=== PATIENT | male | born 1970 | race Caucasian/White ===

== ENCOUNTER 2019-07-26 18:43 | Emergency (ER) | payer BC ==
[2019-07-26] MEDS ORDERED: Sodium Chloride 0.9% 1000 ML 1,000 ML IV STA ×2 (19:15→19:48)
[2019-07-26] MEDS ORDERED: Sodium Chloride 0.9% 1000 ML 0 ML ONE (19:21)
--- NOTE | 2019-07-26 19:22 | ERPHSYRPT ---
- History of Present Illness Historian: patient, family Exam Limitations: no limitations Patient Subjective Stated Complaint: pt reports approx 15 mins [employer] he had stopped at a yard sale with his daughter, reports he had a sudden onset of sharp mid upper abdominal pain, states he also felt lightheaded. reports that he got into the car with his daughter and began to drive, states he had a bried loss of consciousness because he became aware of cars around him and blurry vision as well as his daughter screaming for him to [employer]. pt reports daughter drove him here and states he did vomit once in the parking lot. pt states he feels a lot better. pt also reports that he has not been drinking much water today and has done a lot of walking. Triage Nursing Assessment: pt is aox3, speech is clear and appropriate, pupils perrl, afebrile, resps easy and non labored, radial pulses strong and equal, cap refill < 3 seconds, abd soft non tender bowel sounds present normoactive x 4 , pt skin pink warm dry. Timing/Duration: today Activities at Onset: none Quality: cramping, stabbing Abdominal Pain Onset Location: epigastric Pain Radiation: back Severity of Pain-Max: severe Severity of Pain-Current: moderate Modifying Factors: Improves With: vomiting Associated Symptoms: vomiting Previous symptoms: no prior history Hx Tetanus, Diphtheria Vaccination/Date Given: Yes Hx Influenza Vaccination/Date Given: No Hx Pneumococcal Vaccination/Date Given: No Immunizations Up to Date: Yes - History of Present Illness Time Seen by Provider: 07/26/19 19:20 Physician History: Mr Beasley is a 48 years old male came to ER reports approximately 15 mins [employer] he had stopped at a yard sale with his daughter, reports he had a sudden onset of sharp mid upper abdominal pain, states he also felt lightheaded. reports that he got into the car with his daughter and began to drive, states he had a bried loss of consciousness because he became aware of cars around him and blurry vision as well as his daughter screaming for him to [employer]. pt reports daughter drove him here and states he did vomit once in the parking lot. pt states he feels a lot better. he also reports that he has not been drinking much water today and has done a lot of walking. (NUVIA,JOSE) Allergies/Adverse Reactions: No Known Drug Allergies Allergy (Unverified 07/26/19 18:57) - Review of Systems Constitutional: No Fever, No Chills Eyes: No Symptoms Ears, Nose, & Throat: No Symptoms Respiratory: No Cough, No Dyspnea Cardiac: Syncope, No Chest Pain, No Edema Abdominal/Gastrointestinal: Abdominal Pain, Nausea, Vomiting, No Diarrhea Genitourinary Symptoms: No Dysuria Musculoskeletal: No Back Pain, No Neck Pain Skin: No Rash Neurological: No Dizziness, No Focal Weakness, No Sensory Changes Psychological: No Symptoms Endocrine: No Symptoms All Other Systems: Reviewed and Negative - Past Medical History Pertinent Past Medical History: Yes Endocrine Medical History: Hypothyroidism - Past Surgical History Past Surgical History: Yes Gastrointestinal: Appendectomy, Cholecystectomy - Social History Smoking Status: Never smoker Drug Use: none Patient Lives Alone: No - Physical Exam General Appearance: no apparent distress, alert Eye Exam: PERRL/EOMI, eyes nml inspection Ears, Nose, Throat Exam: normal ENT inspection, pharynx normal, moist mucous membranes Neck Exam: normal inspection, non-tender, supple, full range of motion Respiratory Exam: normal breath sounds, lungs clear, No respiratory distress Cardiovascular Exam: regular rate/rhythm, normal heart sounds Gastrointestinal/Abdomen Exam: soft, No tenderness, No mass Back Exam: normal inspection, normal range of motion, No CVA tenderness, No vertebral tenderness Extremity Exam: normal inspection, normal range of motion, pelvis stable Neurologic Exam: alert, oriented x 3, cooperative, normal mood/affect, nml cerebellar function, sensation nml, No motor deficits Skin Exam: normal color, warm, dry - Nursing Vital Signs Nursing Vital Signs: Initial Vital Signs Temperature 97.7 F 07/26/19 18:45 Pulse Rate 72 07/26/19 18:45 Respiratory Rate 20 07/26/19 18:45 Blood Pressure 149/90 07/26/19 18:45 Pain Scale Pain Intensity 2 - Course Nursing assessment & vital signs reviewed: Yes EKG Interpreted by Me: Sinus Rhythm - Radiology Exams Chest X-ray Interpretation: Reviewed by me - CT Exams Abdomen/Pelvis CT Interpretation: Tele-radiologist Report Ordered Tests: Active Orders 24 hr Category Date Time Status EKG-ER Only STAT Care 07/26/19 19:15 Active IV Insertion STAT Care 07/26/19 19:15 Active NPO (ED) STAT Care 07/26/19 19:15 Active ABDOMEN AND PELVIS W/0 CONTRAS [CT] Stat Exams 07/26/19 19:08 Completed CHEST 1 VIEW (PORTABLE) Stat Exams 07/26/19 19:02 Completed AMYLASE Stat Lab 07/26/19 19:23 Completed CBC W DIFF Stat Lab 07/26/19 19:23 Completed CK-Creatinine Phosphokinase Stat Lab 07/26/19 19:23 Completed CMP Stat Lab 07/26/19 19:23 Completed D-DIMER QUANTITATION Stat Lab 07/26/19 19:23 Completed LIPASE Stat Lab 07/26/19 19:23 Completed Lactic Acid Stat Lab 07/26/19 19:15 Completed MAGNESIUM Stat Lab 07/26/19 19:23 Completed TROPONIN Q3H Lab 07/26/19 19:23 Completed Medication Summary Discontinued Medications Generic Name Dose Route Start Last Admin Trade Name Freq PRN Reason Stop Dose Admin Sodium Chloride 1,000 mls @ 999 mls/hr 07/26/19 19:15 07/26/19 21:49 Sodium Chloride 0.9% 1000 Ml IV 07/26/19 20:15 Infused .Q1H1M STA Infusion Sodium Chloride Confirm 07/26/19 19:21 Sodium Chloride 0.9% 1000 Ml Administered 07/26/19 19:22 Dose 1,000 mls @ ud .ROUTE .STK-MED ONE Sodium Chloride Confirm 07/26/19 19:24 Sodium Chloride 0.9% 1000 Ml Administered 07/26/19 19:25 Dose 1,000 mls @ ud .ROUTE .STK-MED ONE Sodium Chloride 1,000 mls @ 999 mls/hr 07/26/19 19:48 07/26/19 21:49 Sodium Chloride 0.9% 1000 Ml IV 07/26/19 20:48 Infused .Q1H1M STA Infusion Sodium Chloride Confirm 07/26/19 20:22 Sodium Chloride 0.9% 1000 Ml Administered 07/26/19 20:23 Dose 1,000 mls @ ud .ROUTE .STK-MED ONE Potassium Bicarbonate 25 meq 07/26/19 19:51 07/26/19 20:26 K-Lyte 25 Meq PO 07/26/19 19:52 25 meq STAT ONE Administration Potassium Bicarbonate Confirm 07/26/19 20:22 K-Lyte 25 Meq Administered 07/26/19 20:23 Dose 25 meq .ROUTE .STK-MED ONE Lab/Rad Data: Laboratory Result Diagrams 07/26/19 19:23 07/26/19 19:23 Laboratory Results 07/26/19 07/26/19 07/26/19 Range/Units 20:47 19:23 19:23 WBC (4.0-10.5) K/mm3 RBC (4.1-5.6) M/mm3 Hgb (12.5-18.0) gm/dl Hct (42-50) % MCV (78-100) fl MCH (26-32) pg MCHC (32-36) g/dl RDW (11.5-14.0) % Plt Count (150-450) K/mm3 MPV (6-9.5) fl Gran % (36.0-66.0) % Eos # (Auto) (0-0.5) Absolute Lymphs (auto) (1.0-4.6) Absolute Monos (auto) (0.0-1.3) Lymphocytes % (24.0-44.0) % Monocytes % (0.0-12.0) % Eosinophils % (0.00-5.0) % Basophils % (0.0-0.4) % Absolute Granulocytes (1.4-6.9) Basophils # (0-0.4) D-Dimer < 215 L (215-500) ng/mL Sodium (137-145) mmol/L Potassium (3.5-5.1) mmol/L Chloride (98-107) mmol/L Carbon Dioxide (22-30) mmol/L Anion Gap (5-15) MEQ/L BUN (9-20) mg/dL Creatinine (0.66-1.25) mg/dL Estimated GFR ML/MIN Glucose (74-106) mg/dL Hemoglobin A1c 4.92 (4.5-6.0) % Lactic Acid (0.4-2.0) Calcium (8.4-10.2) mg/dL Magnesium (1.6-2.3) mg/dL Total Bilirubin (0.2-1.3) mg/dL AST (17-59) U/L ALT (0-50) U/L Alkaline Phosphatase (38-126) U/L Creatine Kinase (55-170) U/L Troponin I < 0.012 (0.000-0.034) ng/mL Serum Total Protein (6.3-8.2) g/dL Albumin (3.5-5.0) g/dL Amylase (30-110) U/L Lipase (23-300) U/L 07/26/19 07/26/19 07/26/19 Range/Units 19:23 19:23 19:15 WBC 7.9 (4.0-10.5) K/mm3 RBC 4.53 (4.1-5.6) M/mm3 Hgb 13.9 (12.5-18.0) gm/dl Hct 40.4 L (42-50) % MCV 89.2 (78-100) fl MCH 30.7 (26-32) pg MCHC 34.4 (32-36) g/dl RDW 12.8 (11.5-14.0) % Plt Count 314 (150-450) K/mm3 MPV 9.3 (6-9.5) fl Gran % 44.4 (36.0-66.0) % Eos # (Auto) 0.34 (0-0.5) Absolute Lymphs (auto) 3.35 (1.0-4.6) Absolute Monos (auto) 0.64 (0.0-1.3) Lymphocytes % 42.7 (24.0-44.0) % Monocytes % 8.2 (0.0-12.0) % Eosinophils % 4.3 (0.00-5.0) % Basophils % 0.4 (0.0-0.4) % Absolute Granulocytes 3.49 (1.4-6.9) Basophils # 0.03 (0-0.4) D-Dimer (215-500) ng/mL Sodium 141 (137-145) mmol/L Potassium 3.4 L (3.5-5.1) mmol/L Chloride 103 (98-107) mmol/L Carbon Dioxide 26 (22-30) mmol/L Anion Gap 15.4 H (5-15) MEQ/L BUN 19 (9-20) mg/dL Creatinine 1.56 H (0.66-1.25) mg/dL Estimated GFR 50.5 ML/MIN Glucose 153 H (74-106) mg/dL Hemoglobin A1c (4.5-6.0) % Lactic Acid 2.9 H (0.4-2.0) Calcium 9.6 (8.4-10.2) mg/dL Magnesium 2.1 (1.6-2.3) mg/dL Total Bilirubin 0.90 (0.2-1.3) mg/dL AST 27 (17-59) U/L ALT 24 (0-50) U/L Alkaline Phosphatase 39 (38-126) U/L Creatine Kinase 124 (55-170) U/L Troponin I (0.000-0.034) ng/mL Serum Total Protein 7.4 (6.3-8.2) g/dL Albumin 4.6 (3.5-5.0) g/dL Amylase 106 (30-110) U/L Lipase 96 (23-300) U/L - Progress Progress: improved Counseled pt/family regarding: lab results, diagnosis, need for follow-up, rad results - Departure Departure Disposition: Home Critical Care Time: No - Departure Clinical Impression: Epigastric abdominal pain, Syncope, vasovagal Condition: Stable Referrals: DAMIEN PIMENTEL MD [Primary Care Provider] - Instructions: Acute Abdomen (Belly Pain), Adult (DC), Syncope (Fainting) (DC), Vasovagal Response (DC) Additional Instructions: ABDOMINAL PAIN 1. There are several different causes for abdominal pain, some of which may not be able to be identified on initial examination. 2. The important thing to remember is that bodily functions can change in a short period of time. If you notice any of the following symptoms, return to the emergency department or consult your doctor immediately: A. Worsening pain or no improvement in the next 12 hours. B. Increasing, severe abdominal pain C. Blood in stool D. Black stools E. Persistent vomiting F. Fever or chills or other symptoms Discharge/Care Plan RAMOSMIKE MARAVILLA was seen on 07/26/19 in the Emergency Room. The patient was counseled regarding Diagnosis,Lab results, Imaging studies, need for follow up and when to return to the Emergency Room. Prescriptions given: Discharge Note I have spoken with the patient and/or caregivers. I have explained the patient' s condition, diagnosis and treatment plan based on the information available to me at this time. I have answered the patient's and/or caregiver's questions and addressed any concerns. The patient and/or caregivers have as good understanding of the patient's diagnosis, condition and treatment plan as can be expected at this point. The vital signs have been stable. The patient's condition is stable and appropriate for discharge from the emergency department. The patient will pursue further outpatient evaluation with the primary care physician or other designated or consulting physician as outlined in the discharge instructions. The patient and/or caregivers are agreeable to this plan of care and follow-up instructions have been explained in detail. The patient and/or caregivers have received these instruction. The patient/and or caregivers are aware that any significant change in condition or worsening of symptoms should prompt an immediate return to this or the closest emergency department or call 911. MIKE BEASLEY was seen on 07/26/19 n the Emergency Room. At that time you were treated for an emergent condition, during your visit Laboratory, Radiology and/or other procedures may have been ordered. It is very important that you follow-up with your Primary Care Physician DAMIEN PIMENTEL within the next 24-48 hours to review your Emergency Room visit and the final results of testing that was ordered. Some test results such as Urine Cultures, Blood Cultures, and other cultures if ordered will not be finalized for 24-48 hours. If you do not have a Primary Care Provider please call the medical records department at [phone] ext [phone] to obtain a copy of your results or you may sign into our patient portal to obtain these results by visiting us @ [email or web address] and completing the following steps: 1. Click on the Patient Portal link 2. Click the Patient Self Enrollment Link to complete the enrollment form and entering your 3. Once the enrollment form is completed you will receive an email with a temporary ID and password at the email address you provided. 4. Next choose a user name and password. Your user name must be at least 4 characters long and your password must be at least 4 characters long. 5. Choose a security question from the list and provide your answer to the question. If you already have signed into the Health Portal you may access your Health Care Information 15/05 by the following steps: 1. Login to our website @ [email or web address] 2. Enter your original user name and password. FAQS The [facility] Health Portal is an online tool that contains your Lab Results, Radiology Reports, Visit History, Discharge Instructions and Health Summary Lab and Radiology Results will not be available for 72 hours on the portal. The Portal is a secure site, passwords are encryted and URLs are re-written so they cannot be copied and pasted. You and authorized family members are the only ones who can access your Portal. Also there is a timeout feature that protects your information if you leave the Portal page open. If you have technical difficulty please use the Contact Us link on the page this will allow you to submit any questions you have regarding the Portal or you may contact the Medical Record Department at [phone] ext [phone].
[2019-07-26] MEDS ORDERED: Sodium Chloride 0.9% 1000 ML 1,000 ML ONE ×2 (19:24→20:22)
[2019-07-26 19:29] LABS: Absolute Neutrophil Ct (ANC) 3.49 (1.4-6.9); BASOPHIL % 0.4 % (0.0-0.4); Basophil (Absolute #) 0.03 (0-0.4); Eosinophil % 4.3 % (0.00-5.0); Eosinophil (Absolute #) 0.34 (0-0.5); Hematocrit 40.4 % (42-50); Hemoglobin 13.9 gm/dl (12.5-18.0); Lymphocyte (Absolute #) 3.35 (1.0-4.6); Lymphocytes % 42.7 % (24.0-44.0); Mean Cell Volume 89.2 fl (78-100); Mean Corpuscular Hemoglobin 30.7 pg (26-32); Mean Corpuscular Hgb Concent. 34.4 g/dl (32-36); Mean Platelet Volume 9.3 fl (6-9.5); Monocyte (Absolute #) 0.64 (0.0-1.3); Monocytes % 8.2 % (0.0-12.0); Neutrophil % 44.4 % (36.0-66.0); Platelet Count 314 K/mm3 (150-450); Red Blood Count 4.53 M/mm3 (4.1-5.6); Red Cell Distribution Width 12.8 % (11.5-14.0); White Blood Count 7.9 K/mm3 (4.0-10.5)
[2019-07-26 19:36] LABS: Lactic Acid 2.9 (0.4-2.0)
[2019-07-26 19:43] LABS: ALBUMIN 4.6 g/dL (3.5-5.0); ANION GAP 15.4 MEQ/L (5-15); BILIRUBIN,TOTAL 0.9 mg/dL (0.2-1.3); Calcium 9.6 mg/dL (8.4-10.2); Creatinine 1 1.56 mg/dL (0.66-1.25); MAGNESIUM 2.1 mg/dL (1.6-2.3); Potassium 3.4 mmol/L (3.5-5.1); Total Protein 7.4 g/dL (6.3-8.2)
[2019-07-26] MEDS ORDERED: K-LYTE 25 MEQ PO ONE (19:51)
[2019-07-26] MEDS ORDERED: K-LYTE 25 MEQ ONE (20:22)
[2019-07-26 21:49] VITALS: BP 125/76; PULSE 61; O2SAT 100
--- NOTE | 2019-07-27 07:38 | XRAY ---
Indication: Chest/upper abdomen pain. Comparison: None Portable chest demonstrates normal heart, lungs, and bony thorax with a few incidental calcified granulomas.
--- NOTE | 2019-07-27 07:41 | XRAY ---
Indication: Upper abdomen/chest pain. Nausea and vomiting. Multiple contiguous axial images obtained through the abdomen and pelvis without contrast as ordered. Comparison: None Lung bases demonstrates right posterior gutter calcified granuloma. No infiltrate or effusion. Heart is not enlarged. Noncontrasted stomach and bowel loops appear nonobstructed. Patient reports previous appendectomy and cholecystectomy. Mild scattered fecal debris predominantly in the ascending and transverse colon. No free fluid/air. Remaining liver, pancreas, spleen, adrenal glands, kidneys, ureters, bladder, and aorta appear unremarkable for noncontrast exam. Osseous structures intact with mild lumbosacral junction degenerative disc disease and small L5 bone cyst. No ventral or inguinal hernias. Impression: 1. Mild fecal stasis without obstruction, right lung base calcified granuloma, and chronic bony findings. 2. Remaining CT abdomen/pelvis without contrast exam is negative. Comment: Preliminary interpretation was made by [facility]. No critical discrepancy. CTDI 18.57
== END 2019-07-26 21:50 | disposition home or self-care (01) ==
LOC: ED 18:43
DX: R10.13 Epigastric pain (principal); R55 Syncope and collapse; R11.10 Vomiting, unspecified
CPT/HCPCS: 36000; 36415; 71045; 74176; 80053; 82150; 82550; 83036; 83605; 83690; 83735; 84484; 85025; 85379; 93005; 96360; 96361; 99284; A9270-GY

== ENCOUNTER 2021-10-04 09:49 | Day surgery (SDC) | payer BC ==
[2021-10-04] MEDS ORDERED: Lactated Ringers 1,000 ML IV SCH (10:00)
[2021-10-04] MEDS ORDERED: Lactated Ringers 1,000 ML IV ONE ×2 (10:18→13:30)
[2021-10-04] MEDS ORDERED: Versed 2 MG/2 ML Injection IV ONE (10:22)
[2021-10-04] MEDS ORDERED: Versed 2 MG/2 ML Injection ONE ×2 (10:26→13:04)
[2021-10-04] MEDS ORDERED: DIPRIVAN 200 MG/20 ML IV ONE ×2 (13:04→13:25)
[2021-10-04 14:50] VITALS: BP 127/77; PULSE 58; O2SAT 98
--- NOTE | 2021-10-05 09:03 | OP ---
PROCEDURE DATE/TIME: 10/04/2021 1313 PREOPERATIVE DIAGNOSIS: Screening. POSTOPERATIVE DIAGNOSES: 1) Marginal colonic prep. 2) Ascending colon polyp. PROCEDURE: Colonoscopy to cecum with cold forceps polypectomy ascending colon polyp. PROCEDURE PERFORMED BY: Cileo Ríos M.D. COMPLICATIONS: None. ESTIMATED BLOOD LOSS: Minimal. ANESTHESIA: MAC. SPECIMEN: Ascending colon polyp. HISTORY: This is a 50-year-old gentleman who presents for screening colonoscopy. Risks, benefits, alternatives discussed with him preoperatively. H&P and consent all reviewed with him and any questions answered. DESCRIPTION OF PROCEDURE: He was brought to the endoscopy suite, laid in left lateral decubitus position. A complete time out performed. A rectal exam was then done and then the scope was gently introduced and advanced gently to the level of the cecum. The prep was noted to be very marginal in the ascending colon and I do think that because of the prep I am only able to visualize probably about 70% of the mucosa despite copious irrigation and so he will need another colonoscopy within the year. I was able to visualize enough that I do not see any large lesions although any flat or small lesions could be missed because of the prep. There was extremely adherent bile to the augustine. I did take some pictures and I irrigated and took some pictures status post irrigation and I am just not able to fully remove all of this bile. We suctioned and irrigated copiously. The patient's colon seems slightly fragile. Just suctioning and irrigating alone causes the colon to bleed slightly but then this does immediately stop. We carefully withdrew the scope. Immediately outside of his ileocecal valve, I did see a very small ascending colon polyp this is about 1 to 2 mm in size. It looks benign. It was taken in entirety with the cold forceps and sent to pathology. This site was confirmed to be hemostatic. Everything else was hemostatic. We carefully withdrew the scope. We continued to irrigate, suction and insure hemostasis throughout the entire procedure. I did not find any masses or lesions. The remainder of his colon had better prep but it was not ideal. His rectum was normal and then we were able to completely remove the scope. The patient tolerated the procedure very well. No immediate complications. He is going to be following up with me as an outpatient and then I will plan to send him a reminder for his colonoscopy in approximately six months which I have discussed with his family to plan to repeat this study with a better prep and insure there are no missed lesions.
== END 2021-10-04 14:52 | disposition home or self-care (01) ==
LOC: SDC 09:49
PROVIDERS: ATTEND Surgery
DX: Z12.11 Encounter for screening for malignant neoplasm of colon (principal); D12.2 Benign neoplasm of ascending colon
CPT/HCPCS: J2250; J2704